=== PATIENT | female | born 1985 | race Caucasian/White ===

== ENCOUNTER 2017-01-13 02:37 | Emergency (ER) | payer OTHER ==
[2017-01-13 04:33] VITALS: BP 118/69
== END 2017-01-13 04:30 | disposition home or self-care (01) ==
LOC: ED 02:37
DX: S83.92XA Sprain of unspecified site of left knee, initial encounter (principal); X50.1XXA Overexertion from prolonged static or awkward postures, initial encounter; Y93.89 Activity, other specified; Y99.8 Other external cause status; Y92.89 Other specified places as the place of occurrence of the external cause
CPT/HCPCS: Q0092